=== PATIENT | male | born 1975 | race Caucasian/White ===

== ENCOUNTER 2017-09-21 22:57 | Emergency (ER) | payer MEDICARE ==
[2017-09-21] MEDS ORDERED: NORMAL SALINE 1000 ML 1,000 ML IV ONE (23:50)
--- NOTE | 2017-09-22 | ER Document Report ---
ED General - General Chief Complaint: Leg Pain Stated Complaint: RIGHT CLAF PAIN Time Seen by Provider: 09/21/17 23:13 Notes: Patient is a 42-year-old male with past medical history of Tourette's syndrome but no chronic medical conditions who presents with severe right calf pain. The patient is noted to be in what appears to be significant agony, writhing around the bed on initial assessment. He states that this pain started abruptly while he was running in shallow water in the ocean trying to push 1 of his children. He states that since onset of the pain he has had a severe, stabbing, cramping pain to the right calf that has been unrelenting. Any attempt at walking or moving leg worsens the pain. Nothing improves the pain. The patient does note that he has some mild discomfort to the right calf approximately 2 weeks ago which resolved after he rested the area. He had not had any recurrence of the symptoms until today and states that they were nowhere near as severe as his pain is currently. He did also note that he had a recent antibiotic course with azithromycin due to concerns of a possible pharyngeal infection due to lymphadenopathy and a sore throat but that those symptoms have also since resolved. He is visiting from [place] with his and children. TRAVEL OUTSIDE OF THE [place] IN LAST 30 DAYS: No Past Medical History - General Information source: Patient - Social History Smoking Status: Never Smoker Frequency of alcohol use: None Drug Abuse: None Lives with: Spouse/Significant other Family History: Reviewed & Not Pertinent Patient has suicidal ideation: No Patient has homicidal ideation: No Renal/ Medical History: Denies: Hx Peritoneal Dialysis Review of Systems - Review of Systems Notes: Constitutional: Negative for fever. HENT: Negative for sore throat. Eyes: Negative for visual changes. Cardiovascular: Negative for chest pain. Respiratory: Negative for shortness of breath. Gastrointestinal: Negative for abdominal pain, vomiting or diarrhea. Genitourinary: Negative for dysuria. Musculoskeletal: Positive for severe right calf pain Skin: Negative for rash. Neurological: Negative for headaches, weakness or numbness. 10 point ROS negative except as marked above and in HPI. Physical Exam - Vital signs Vitals: Temp Pulse Resp BP Pulse Ox 97.8 F 81 16 158/86 H 97 09/21/17 23:08 09/21/17 23:08 09/21/17 23:08 09/21/17 23:08 09/21/17 23:08 Interpretation: Hypertensive Notes: PHYSICAL EXAMINATION: GENERAL: Appears to be in severe pain, writhing in the bed HEAD: Atraumatic, normocephalic. EYES: Pupils equal round and reactive to light, extraocular movements intact, sclera anicteric, conjunctiva are normal. ENT: nares patent, oropharynx clear without exudates. Moist mucous membranes. NECK: Normal range of motion, supple without lymphadenopathy LUNGS: Breath sounds clear to auscultation bilaterally and equal. No wheezes rales or rhonchi. HEART: Regular rate and rhythm without murmurs ABDOMEN: Soft, nontender, normoactive bowel sounds. No guarding, no rebound. No masses appreciated. EXTREMITIES: There is loss of definition to the right calf with apparent swelling particularly to the posterior medial region of the calf. No pain on palpation of the popliteal fossa. Bedside ultrasound does not show any obvious fluid collection, popliteal veins are easily compressed. NEUROLOGICAL: No focal neurological deficits. Moves all extremities spontaneously and on command. PSYCH: Normal mood, normal affect. SKIN: Warm, Dry, normal turgor, no rashes or lesions noted. Course - Re-evaluation Re-evalutation: 09/21/17 23:58 Patient presents in exquisite pain to his right calf that started abruptly shortly prior to arrival. The patient is writhing around in the bed, unable to sit still, leaps off the bed when I palpate the central calf. The acuity in the good degree of his pain is inconsistent with a DVT and he has no risk factors for this diagnosis. They did drive down to [place] from [place] today but this is not a long drive and the patient did take several breaks. Moreover he has no pain in the popliteal fossa. The patient states the only other activity he did today was walking in the ocean water but denies any vigorous activity. He has no complaints any other area other than his right calf. Concern for possible necrotizing infection given his degree of pain and lack of a alternative consideration. A muscle spasm could cause a similar presentation the patient is adamant that this feels much more severe and the duration of his symptoms is likewise inconsistent with this. On examination the patient does have 2+ DP pulses bilaterally. Capillary refill is less than 2 seconds in all digits. Will obtain labs, CT imaging of the right lower externally and reassess the patient 09/22/17 00:41 Pain continues to persist despite patient receiving a milligram of hydromorphone. Bedside ultrasound does not show any obvious fluid collection in the calf, popliteal vein. Awaiting labs and CT scan 09/22/17 02:12 CT scan of the right lower extremity does show that there is soft tissue swelling and edema overlying the area of the patient's pain in the posterior medial calf but no evidence of myositis, arteriovenous compromise. I discussed Dr. Jones who will evaluate the patient in the morning. We will continue to observe the patient in the emergency department, provide analgesia as needed, repeat CBC, CK and lactate and order an MRI of the lower extremity. 09/22/17 03:22 I have reviewed this plan with Dr. Ba Novoa who will assume care of this patient going forward. Plan is for the labs to be rechecked followed by MRI and orthopedic consultation and disposition according to results of these tests. I have reviewed with the patient and he is agreeable with this plan. - Vital Signs Vital signs: Temp Pulse Resp BP Pulse Ox 97.8 F 81 16 158/86 H 97 09/21/17 23:08 09/21/17 23:08 09/21/17 23:08 09/21/17 23:08 09/21/17 23:08 - Laboratory Result Diagrams: 09/22/17 00:13 09/22/17 00:13 Laboratory results interpreted by me: 09/22/17 00:13 Sodium 145.5 H Creatine Kinase 291 H - Diagnostic Test Radiology reviewed: Reports reviewed Discharge - Discharge Clinical Impression: Right calf pain, Inadequate pain control
[2017-09-22] MEDS: HYDROMORPHONE HCL INJ/PF 2 MG/ML AMPULE IV PRN ×6 (00:08→08:13)
[2017-09-22] MEDS ORDERED: HYDROMORPHONE HCL INJ/PF 2 MG/ML AMPULE IV ONE ×3 (00:28→13:28)
[2017-09-22] MEDS ORDERED: KETOROLAC TROMETHAMINE INJ/PF 30 MG/1 ML SDV IV ONE (00:28)
[2017-09-22 00:31] LABS: ABSOLUTE BASOPHILS # (AUTO) 0.1 10^3/uL (0.0-0.2); ABSOLUTE EOSINOPHILS # (AUTO) 0.1 10^3/uL (0.0-0.6); ABSOLUTE LYMPHOCYTES (AUTO) 2.7 10^3/uL (0.5-4.7); ABSOLUTE MONOCYTES (AUTO) 0.5 10^3/uL (0.1-1.4); ABSOLUTE NEUT (AUTO) 5.2 10^3/uL (1.7-8.2); BASOPHILS % (AUTO) 0.8 % (0-2); EOSINOPHILS % (AUTO) 1.3 % (0-6); HEMATOCRIT 45.8 % (37.9-51.0); HEMOGLOBIN 15.4 g/dL (13.5-17.0); LYMPHOCYTES % (AUTO) 31.6 % (13-45); MEAN CORPUSCULAR HEMOGLOBIN 28.1 pg (27.0-33.4); MEAN CORPUSCULAR HGB CONC 33.7 g/dL (32.0-36.0); MEAN CORPUSCULAR VOLUME 83 fl (80-97); MONOCYTES % (AUTO) 6.3 % (3-13); PLATELET COUNT 315 10^3/uL (150-450); RED BLOOD COUNT 5.49 10^6/uL (4.35-5.55); RED CELL DISTRIBUTION WIDTH 13.4 % (11.5-14.0); TOTAL CELLS COUNTED % (AUTO) 100 %; WHITE BLOOD COUNT 8.6 10^3/uL (4.0-10.5)
[2017-09-22] MEDS: MAGNESIUM SULFATE/D5W 1 GM/100 ML RTUPB IV SCH ×2 (00:40→01:52)
[2017-09-22 00:45] LABS: ANION GAP 14 (5-19); BLOOD UREA NITROGEN 8 mg/dL (7-20); CALCIUM 9.5 mg/dL (8.4-10.2); CARBON DIOXIDE 27 mmol/L (22-30); CHLORIDE 105 mmol/L (98-107); CREATINE KINASE 291 U/L (55-170); GLUCOSE 91 mg/dL (75-110); POTASSIUM 3.8 mmol/L (3.6-5.0); SODIUM 145.5 mmol/L (137-145)
--- NOTE | 2017-09-22 01:58 | RADIOLOGY REPORT (SQ) ---
CLINICAL HISTORY : severe right calf pain,?gas , EXAM : CT of the right calf with contrast September 22, 2017 COMPARISON : none TECHNIQUE : Volumetric CT acquisition was performed through the right calf. Images in the axial, coronal, and sagittal planes were presented for interpretation. Intravenous contrast was administered. RADIATION DOSE/CONTRAST : DLP-194.10 FINDINGS : There is no acute fracture or dislocation. There is subcutaneous soft tissue swelling overlying the mid and distal calf posteriorly and medially. There is no discrete fluid collection to suggest abscess formation. There is no evidence of muscular edema or deep fascial enhancement. There is no evidence of soft tissue air within the right calf. Limited evaluation of the arterial venous vasculature demonstrates no gross abnormalities. The musculature of the right calf is normal in bulk and morphology. Limited evaluation of the knee and ankle joint are within normal limits for the patient's age without significant degenerative changes. IMPRESSION: 1. Subcutaneous soft tissue swelling without abscess formation, myositis, or soft tissue air. 2. No acute fracture or dislocation.
[2017-09-22] MEDS ORDERED: FAMOTIDINE 20 MG TABLET PO ONE (05:11)
[2017-09-22] MEDS ORDERED: DIPHENHYDRAMINE HCL 50 MG/ML VIAL IV ONE (06:12)
[2017-09-22 06:18] LABS: ABSOLUTE BASOPHILS # (AUTO) 0.1 10^3/uL (0.0-0.2); ABSOLUTE EOSINOPHILS # (AUTO) 0.1 10^3/uL (0.0-0.6); ABSOLUTE MONOCYTES (AUTO) 0.6 10^3/uL (0.1-1.4); BASOPHILS % (AUTO) 0.7 % (0-2); EOSINOPHILS % (AUTO) 1.6 % (0-6); HEMATOCRIT 44.2 % (37.9-51.0); HEMOGLOBIN 14.9 g/dL (13.5-17.0); LYMPHOCYTES % (AUTO) 38.4 % (13-45); MEAN CORPUSCULAR HEMOGLOBIN 28.1 pg (27.0-33.4); MEAN CORPUSCULAR HGB CONC 33.7 g/dL (32.0-36.0); MEAN CORPUSCULAR VOLUME 83 fl (80-97); MONOCYTES % (AUTO) 7.7 % (3-13); PLATELET COUNT 291 10^3/uL (150-450); RED BLOOD COUNT 5.31 10^6/uL (4.35-5.55); RED CELL DISTRIBUTION WIDTH 13.2 % (11.5-14.0); SEGMENTED NEUTROPHILS % (AUTO) 51.6 % (42-78); TOTAL CELLS COUNTED % (AUTO) 100 %; WHITE BLOOD COUNT 7.8 10^3/uL (4.0-10.5)
--- NOTE | 2017-09-22 06:30 | ER Document Report ---
Doctor's Note Notes: 09/22/17 06:29 Pt reevaluated noted to still be in pain, another dose of pain medication ordered
--- NOTE | 2017-09-22 07:29 | PDOC CONSULTATION ---
Consultation Consult Date: 09/22/17 Consult reason:: Right calf pain History of Present Illness History of Present Illness: ANGÉLICA SOTO is a 42 year old male The patient is a 42-year-old white male with a noncontributory past medical history who presents with right calf pain. The patient reports that he had prodromal symptoms a week or 2 ago and rested the following weekend with a resolution of his symptoms. He was now playing in the surface/sand yesterday with minimal effort and had acute onset pain in the same location. He has been brought to the emergency room and has received parenteral narcotics with effective analgesia. A CT scan has been obtained which demonstrates some subcutaneous edema by radiologist interpretation. Past Medical History Medical History: None Past Surgical History Past Surgical History: Reports: None Social History Information Source: Patient, [facility] Records Lives with: Spouse/Significant other Smoking Status: Never Smoker Family History Family History: Reviewed & Not Pertinent Parental Family History Reviewed: No Children Family History Reviewed: No Sibling(s) Family History Reviewed.: No Medication/Allergy Allergies/Adverse Reactions: droperidol Allergy (Verified 09/22/17 06:50) metoclopramide [From Reglan] Allergy (Verified 09/22/17 06:50) prochlorperazine [From Compazine] Allergy (Verified 09/22/17 06:50) sumatriptan [From Imitrex] Allergy (Verified 09/22/17 06:50) Review of Systems All systems: as per [facility] Physical Exam Vital Signs: Temp Pulse Resp BP Pulse Ox 36.7 C 68 18 172/91 H 92 09/22/17 06:54 09/22/17 06:54 09/22/17 06:54 09/22/17 06:54 09/22/17 06:54 Intake & Output 09/21/17 09/22/17 09/23/17 06:59 06:59 06:59 Weight 78.2 kg Physical Exam: The patient is a moderately built white male sitting askew on a hospital gurney with his head dependent on his ipsilateral upper extremity and what seems to be moderate to severe distress. Examination of the right lower extremity reveals minimal minimal pedal edema. Passive range of motion of the toes is without any significant discomfort. Passive range of motion the ankle has only minimal discomfort. The point of maximal tenderness is at the myotendinous junction of the medial gastroc head. There is no skin abnormalities. There is palpable pulses. Sensory examination is intact to light touch. General appearance: PRESENT: mild distress, severe distress Head exam: PRESENT: normocephalic Respiratory exam: PRESENT: unlabored Cardiovascular exam: PRESENT: RRR Pulses: PRESENT: +1 pedal pulses bilateral Vascular exam: PRESENT: normal capillary refill GI/Abdominal exam: PRESENT: soft Rectal exam: PRESENT: deferred Extremities exam: PRESENT: other - As above Neurological exam: PRESENT: alert, awake, oriented to person, oriented to place , oriented to time, oriented to situation. ABSENT: motor sensory deficit Psychiatric exam: PRESENT: anxious Skin exam: PRESENT: dry, intact, warm. ABSENT: cyanosis, rash Results Laboratory Results: 09/22/17 06:01 09/22/17 00:13 09/22/17 09/22/17 09/22/17 00:13 00:13 00:13 WBC 8.6 RBC 5.49 Hgb 15.4 Hct 45.8 MCV 83 MCH 28.1 MCHC 33.7 RDW 13.4 Plt Count 315 Seg Neutrophils % 60.0 Lymphocytes % 31.6 Monocytes % 6.3 Eosinophils % 1.3 Basophils % 0.8 Absolute Neutrophils 5.2 Absolute Lymphocytes 2.7 Absolute Monocytes 0.5 Absolute Eosinophils 0.1 Absolute Basophils 0.1 Sodium 145.5 H Potassium 3.8 Chloride 105 Carbon Dioxide 27 Anion Gap 14 BUN 8 Creatinine 0.85 Est GFR ( Amer) > 60 Est GFR (Non-Af Amer) > 60 Glucose 91 Lactic Acid 1.5 Calcium 9.5 09/22/17 09/22/17 06:01 06:01 WBC 7.8 RBC 5.31 Hgb 14.9 Hct 44.2 MCV 83 MCH 28.1 MCHC 33.7 RDW 13.2 Plt Count 291 Seg Neutrophils % 51.6 Lymphocytes % 38.4 Monocytes % 7.7 Eosinophils % 1.6 Basophils % 0.7 Absolute Neutrophils 4.0 Absolute Lymphocytes 3.0 Absolute Monocytes 0.6 Absolute Eosinophils 0.1 Absolute Basophils 0.1 Sodium Potassium Chloride Carbon Dioxide Anion Gap BUN Creatinine Est GFR ( Amer) Est GFR (Non-Af Amer) Glucose Lactic Acid 1.0 Calcium 09/22/17 09/22/17 00:13 06:01 Creatine Kinase 291 H 612 H Impressions: Lower Extremity CT 09/21/17 23:50 IMPRESSION: 1. Subcutaneous soft tissue swelling without abscess formation, myositis, or soft tissue air. 2. No acute fracture or dislocation. Status: Imported from PACS Assessment & Plan - Diagnosis (1) Right calf pain Is this a current diagnosis for this admission?: Yes Plan: 42-year-old white male with acute onset right calf pain and history of prodromal symptoms a week or 2 ago. Differential diagnosis would include myotendinous strain of the medial gastroc head, also entered into the list have been deep venous thrombosis and potentially one could envision a soft tissue mass with a spontaneous intramural bleed. On the basis of physical examination I do not think the patient has a DVT. I think in all likelihood common things being common this is a strain of the medial gastroc head. Admittedly pain seems to be out of proportion to the magnitude of the injury. If this is a medial gastroc strain treatment would be rest and anti-inflammatory medication. Will await the results of the scheduled Doppler ultrasound and MRI scan. - Time Time Spent: 50 to 70 Minutes Anticipated discharge: Home Within: Other
[2017-09-22] MEDS ORDERED: ONDANSETRON 4 MG TAB.RAPDIS PO ONE (08:15)
[2017-09-22] MEDS ORDERED: DIAZEPAM INJ 10 MG/2 ML DISP.SYRIN IV ONE (09:37)
--- NOTE | 2017-09-22 10:27 | RADIOLOGY REPORT (SQ) ---
EXAM DESCRIPTION: MRI LT LOWER EXTREMITY COMBO COMPLETED DATE/TIME: 09/22/2017 9:39 am REASON FOR STUDY: right calf pain, swelling COMPARISON: None. TECHNIQUE: Multiplanar fat and fluid sensitive sequences precontrast including T1, T2 fat saturated or STIR. Post contrast T1 fat saturated sequences after IV gadolinium administration. CONTRAST TYPE AND DOSE: 15 mL Prohance. RENAL FUNCTION: None required. The patient is less than 50 years old. LIMITATIONS: None. FINDINGS: LOCATION: Medial gastrocnemius head at the myotendinous junction SIGNAL CHARACTERISTICS AND ENHANCEMENT PATTERN: Increased T2 signal without abnormal enhancement abou t the myotendinous junction of the medial gastroc head. MARROW SIGNAL IN ADJACENT BONES: There is a 2 cm area of stippled appearing low T1 and high T2 signal in the distal diaphysis of the femur with no abnormal enhancement present. The remainder the bone m arrow signal is unremarkable. OTHER SIGNIFICANT BONE, JOINT OR SOFT TISSUE FINDINGS: The remainder of the visualized soft tissues a re grossly unremarkable. IMPRESSION: 1. Partial tear of the medial head of the gastrocnemius at the myotendinous junction. 2. 2 cm lesion in the distal right femoral diaphysis with a stippled appearance and mixed low T1 and high T2 signal without abnormal enhancement. Given the overall appearance, this likely represents an enchondroma, however further evaluation with plain film or CT of this area is required for definitiv e diagnosis. COMMENT: Please note this exam is not tailored to evaluate the ligamentous structures of the knee. TECHNICAL DOCUMENTATION: JOB ID: [id number] [employer]- All Rights Reserved Reading location - IP/workstation name: [email or web address]
[2017-09-22] MEDS ORDERED: FENTANYL CITRATE INJ/PF 100 MCG/2 ML AMPUL IV ONE (10:59)
--- NOTE | 2017-09-22 12:07 | XCELERA REPORT ---
[address] [address] Lower Extremity Venous Evaluation Name: ANGÉLICA SOTO Age: 42 yrs Gender: Male : 1975 Patient Status: Emergency Patient Location: ER Study Date: 09/22/2017 09:50 AM Procedure: Color flow and duplex imaging of the veins of the right lower extremity as well as the left Common Femoral vein. Reason For Study: Right calf pain Ordering Physician: HELADIO LINDSAY Performed By: Lisbet Ceballos Right Sided Venous Evaluation Normal vessel filling wall to wall, compression and augmentation as well as Colour flow down to the infrageniculate veins. Interpretation Summary No duplex evidence of DVT or obstruction in the right lower extremity nor in the left Common Femoral vein. : HELADIO LINDSAY > Alonso Dangelo
[2017-09-22 13:48] VITALS: BP 129/88
== END 2017-09-22 13:48 | disposition home or self-care (01) ==
LOC: ER 22:57
DX: M79.604 Pain in right leg (principal); F95.2 Tourette's disorder
CPT/HCPCS: 96376; 99285; 96375; 96365; 96366; 36415; 82550; 83605; 85025; 80048; 93971 ×2; 73720; 73701; 29505; A9270 ×2; J3360; J1200; J3010; J1885; J1170; J3475; J7030; S0119